=== PATIENT | male | born 1980 | race African-American/Black ===

== ENCOUNTER 2017-03-19 02:56 | Emergency (ER) | payer MEDICAID ==
[~2017-03-19] VITALS: Ht 165.1 cm; Wt 68.0 kg
--- NOTE | 2017-03-19 03:00 | NUR ---
TO BED 2 A 37 YO MALE PATIENT BBRA FOR "ANXIETY/ PANIC ATTACK." UPON ARRIVAL, PATIENT IS AAOX4, NAD NOTED. VSS. BREATHING EVEN AND UNLABORED. DENIES CHEST PAIN. COMFORT MEASURES RENDERED. ENCOURAGED RELAXATION TECHNIQUES.
--- NOTE | 2017-03-19 04:49 | NUR ---
Patient discharged to home in stable condition. Written and verbal after care instructions given. Patient verbalizes understanding of instruction. Patient is ambulatory with steady gait, no further complaints.
[2017-03-19 04:51] VITALS: BP 120/74
== END 2017-03-19 04:52 | disposition home or self-care (01) ==
LOC: ER 02:59
DX: F41.9 Anxiety disorder, unspecified (principal); J45.909 Unspecified asthma, uncomplicated; F32.9 Major depressive disorder, single episode, unspecified
CPT/HCPCS: 99284; A4606; Z7610